=== PATIENT | male | born 1960 | race Caucasian/White ===

== ENCOUNTER 2016-09-29 14:11 | Emergency (ER) | payer OTHER ==
[~2016-09-29] VITALS: Ht 175.3 cm; Wt 75.0 kg
[~2016-09-29 14:11] MED LIST: DEPA500T3; DILA100C; IBUP600T26 PO; LORTA5 PO
[2016-09-29 14:31] VITALS: BP 146/79; PULSE 102; RESP 20; TEMP 99.3; O2SAT 94
[2016-09-29 14:35] LABS: MEAN CORPUSCULAR HGB CONC 36.7 % (32.0-36.0)
[2016-09-29 14:36] VITALS: BP 146/79; PULSE 98; RESP 18; TEMP 99.4; O2SAT 94; O2SAT 95
--- NOTE | 2016-09-29 14:39 | PD ---
HPI Chief Complaint: Seizure Time Seen by Provider: 14:27 Travel History International Travel<30 days: No Contact w/Intl Traveler<30days: No Traveled to known affect area: No History of Present Illness HPI This is a 56-year-old male with history of seizure disorder, neurologist is Dr. Holguin, presents via EMS for evaluation of seizure. Reportedly the patient was in the library when he had a generalized tonic-clonic seizure which was witnessed. He was postictal when paramedics initially arrived. The patient is currently complaining of lower back pain. He believes that he injured his back during the seizure. There is no reported incontinence or tongue biting. He reports that he is currently prescribed Depakote and Dilantin which he has been using as prescribed. He denies any drug or alcohol use. He has no other complaints at this time. [facility] Past Medical History Blood Disorders: No Cardiovascular Problems: No Endocrine: No Genitourinary: No Immune Disorder: No Musculoskeletal: No Neurologic: Yes Psychiatric: No Reproductive: No Respiratory: No Seizures: Yes ?: Not Past Surgical History Abdominal Surgery: No AICD: No Cardiac Surgery: No Ear Surgery: No Endocrine Surgery: No Eye Surgery: No Genitourinary Surgery: No Gynecologic Surgery: No Oral Surgery: Yes (PERMANENT WIRES IN JAW) Pacemaker: No Thoracic Surgery: No Social History Alcohol Use: No Tobacco Use: No Substance Use: No Allergies-Medications (Allergen,Severity, Reaction): Coded Allergies: No Known Allergies (Verified Allergy, Unknown, 04/28/05) Reported Meds & Prescriptions Reported Meds & Active Scripts Active Dilantin (Phenytoin Extended) 100 Mg Cap 100 Mg PO TID 30 Days Review of Systems Except as stated in HPI: all other systems reviewed are Neg Physical Exam Narrative GENERAL: Well-developed well-nourished male in no acute distress. SKIN: Warm and dry. HEAD: Atraumatic. Normocephalic. EYES: Pupils equal and round. No scleral icterus. No injection or drainage. ENT: No nasal bleeding or discharge. Mucous membranes pink and moist. NECK: Trachea midline. No JVD. CARDIOVASCULAR: Regular rate and rhythm. No murmur appreciated. RESPIRATORY: No accessory muscle use. Clear to auscultation. Breath sounds equal bilaterally. GASTROINTESTINAL: Abdomen soft, non-tender, nondistended. Hepatic and splenic margins not palpable. MUSCULOSKELETAL: No obvious deformities. Some slight tenderness to palpation to the lower lumbar spine. No obvious bruising or soft tissue swelling. NEUROLOGICAL: Awake and alert. No obvious cranial nerve deficits. Motor grossly within normal limits. Normal speech. PSYCHIATRIC: Appropriate mood and affect; insight and judgment normal. Data Data Last Documented VS Vital Signs Date Time Temp Pulse Resp B/P Pulse Ox O2 Delivery O2 Flow Rate FiO2 09/29/16 15:49 16 09/29/16 14:36 99.4 98 146/79 94 Room Air Orders Complete Blood Count With Diff (09/29/16 14:34) Basic Metabolic Panel (Bmp) (09/29/16 14:34) Phenytoin (Dilantin) (09/29/16 14:34) Valproic Acid (Depakene) (09/29/16 14:34) Drug Screen, Random Urine (09/29/16 14:34) Electrocardiogram (09/29/16 ) Ct Brain W/O Iv Contrast(Rout) (09/29/16 ) Blood Glucose (09/29/16 14:34) Ecg Monitoring (09/29/16 14:34) Iv Access Insert/Monitor (09/29/16 14:34) Oximetry (09/29/16 14:34) Sodium Chloride 0.9% Flush (Ns Flush) (09/29/16 14:45) Lorazepam Inj (Ativan Inj) (09/29/16 14:45) Spine, Lumbar - Ltd (Ap & Lat) (09/29/16 ) Morphine Inj (Morphine Inj) (09/29/16 14:45) Ct Lumb Spine W/O Contrast (09/29/16 ) Ct Thor Spine W/O Contrast (09/29/16 ) Phenytoin Inj (Dilantin Inj) (09/29/16 16:30) Labs Laboratory Tests Test 09/29/16 14:45 White Blood Count 16.3 TH/MM3 Red Blood Count 4.80 MIL/MM3 Hemoglobin 15.9 GM/DL Hematocrit 43.4 % Mean Corpuscular Volume 90.4 FL Mean Corpuscular Hemoglobin 33.2 PG Mean Corpuscular Hemoglobin 36.7 % Concent Red Cell Distribution Width 13.2 % Platelet Count 291 TH/MM3 Mean Platelet Volume 9.0 FL Neutrophils (%) (Auto) 78.7 % Lymphocytes (%) (Auto) 14.2 % Monocytes (%) (Auto) 5.3 % Eosinophils (%) (Auto) 1.5 % Basophils (%) (Auto) 0.3 % Neutrophils # (Auto) 12.8 TH/MM3 Lymphocytes # (Auto) 2.3 TH/MM3 Monocytes # (Auto) 0.9 TH/MM3 Eosinophils # (Auto) 0.2 TH/MM3 Basophils # (Auto) 0.0 TH/MM3 CBC Comment AUTO DIFF Differential Comment AUTO DIFF CONFIRMED Platelet Estimate NORMAL Platelet Morphology Comment NORMAL Sodium Level 139 MEQ/L Potassium Level 3.7 MEQ/L Chloride Level 105 MEQ/L Carbon Dioxide Level 22.4 MEQ/L Anion Gap 12 MEQ/L Blood Urea Nitrogen 15 MG/DL Creatinine 0.96 MG/DL Estimat Glomerular Filtration 81 ML/MIN Rate Random Glucose 110 MG/DL Calcium Level 9.0 MG/DL Phenytoin (Dilantin) Level LESS THAN 0.4 MCG/ML Valproic Acid (Depakene) Level LESS THAN 3 MCG/ML MDM Medical Decision Making Medical Screen Exam Complete: Yes Emergency Medical Condition: Yes Medical Record Reviewed: Yes Interpretation(s) X-ray lumbar spine CONCLUSION: Moderate compression deformities involving T12 and L3 of indeterminate ages. Clinical correlation is recommended. CT thoracic spine CONCLUSION: 1. T5 and T12 compression deformities are felt to be chronic in nature. No acute compression fracture is seen. CT lumbar spine CONCLUSION: 1. Old compression deformity involving L3. No acute compression fracture. 2. Mild degenerative disc disease. CBC reveals WBC of 16.3 BMP unremarkable Differential Diagnosis Breakthrough seizure, subtherapeutic antiepileptic medication, intracranial mass , hypoglycemia, electrolyte imbalance Narrative Course 56-year-old male with history of seizure disorder, on Depakote and Dilantin, presents after having a seizure at the library today. He is complaining of lower back pain which started after the seizure. Plan is for basic lab work, EKG, ECG monitoring, CT brain, lumbar spine x-ray. He'll be given IV Ativan, as well as morphine for pain. X-ray imaging of the lumbar spine reveals moderate compression deformities of T12 and L3 of indeterminate age. The patient denies any history of compression fractures. CT imaging has been ordered to further assess. The patient's Dilantin levels and Depakote levels are subtherapeutic and when the patient was questioned about this he admits that he has not been on any seizure medication for over 2 years. Therefore a Dilantin loading dose is been ordered. CT imaging reveals old compression deformities with nothing acute. Plan will be to discharge the patient reinitiating a low-dose Dilantin. He is encouraged to follow-up with his neurologist for any titration of medication as required. Discussed with Dr. Garsia agrees with plan of care. Diagnosis Primary Impression: Seizure Additional Instructions: Use the medication as prescribed. Follow up closely with your neurologist sometime this week. No driving for 6 months. Return for any emergent medical conditions. Med/Other Pt SpecificInfo: Prescription(s) given Scripts Phenytoin Extended (Dilantin)100 Mg [id number] Mg PO TID 30 Days Ref 0 Prov:Jose Garsia MD 09/29/16 Disposition: 01 DISCHARGE HOME Condition: Stable Arden Mcbride Sep 29, 2016 14:39
[2016-09-29] MEDS ORDERED: SODIUM CHLORIDE 0.9% FLUSH 10 ML FLUSH IVF PRN (14:45)
[2016-09-29] MEDS ORDERED: MORPHINE SULFATE 4 MG/ML INJ IV PUSH ONE (14:45)
[2016-09-29] MEDS ORDERED: LORazepam 2 MG/ML VIAL IVS ONE (14:45)
[2016-09-29 15:16] LABS: AUTOMATED NEUTROPHIL # 12.8 TH/MM3 (1.8-7.7); BASOPHIL % 0.3 % (0.0-2.0); EOSINOPHIL # 0.2 TH/MM3 (0-0.4); EOSINOPHIL % 1.5 % (0.0-4.0); HEMATOCRIT 43.4 % (39.0-51.0); LYMPH % 14.2 % (9.0-44.0); LYMPHOCYTE # 2.3 TH/MM3 (1.0-4.8); MEAN CELL VOLUME 90.4 FL (80.0-100.0); MEAN CORPUSCULAR HEMOGLOBIN 33.2 PG (27.0-34.0); MONO % 5.3 % (0.0-8.0); NEUT % 78.7 % (16.0-70.0); PLATELET COUNT 291 TH/MM3 (150-450); RED CELL DISTRIBUTION WIDTH 13.2 % (11.6-17.2); WHITE BLOOD COUNT 16.3 TH/MM3 (4.0-11.0)
--- NOTE | 2016-09-29 15:36 | RADRPT ---
EXAM DATE/TIME: 09/29/2016 15:10 [facility] COMPARISON: No previous studies available for comparison. INDICATIONS : Seizure today RADIATION DOSE: 56.35 CTDIvol (mGy) MEDICAL HISTORY : Seizures. SURGICAL HISTORY : None. ENCOUNTER: Initial ACUITY: 1 day PAIN SCALE: 10/10 LOCATION: cranial TECHNIQUE: Multiple contiguous axial images were obtained of the head. Using automated exposure control and adj ustment of the mA and/or kV according to patient size, radiation dose was kept as low as reasonably a chievable to obtain optimal diagnostic quality images. DICOM format image data is available electro nically for review and comparison. FINDINGS: CEREBRUM: Atrophy more pronounced within the posterior cranial fossa. The ventricles are normal for age. No ev idence of midline shift, mass lesion, hemorrhage or acute infarction. No extra-axial fluid collectio ns are seen. POSTERIOR FOSSA: The cerebellum and brainstem are intact. The 4th ventricle is midline. The cerebellopontine angle i s unremarkable. EXTRACRANIAL: The visualized portion of the orbits is intact. SKULL: The calvaria is intact. No evidence of skull fracture. CONCLUSION: No acute disease. Rodríguez Whatley Jr., MD on September 29, 2016 at 15:32 Board Certified Radiologist. This report was verified electronically.
[2016-09-29 15:38] LABS: HEMO FLAGS AUTO DIFF
[2016-09-29 15:49] VITALS: RESP 16
[2016-09-29 15:59] LABS: ANION GAP 12 MEQ/L (5-15); BICARBONATE 22.4 MEQ/L (21.0-32.0); BLOOD UREA NITROGEN 15 MG/DL (7-18); CHLORIDE 105 MEQ/L (98-107); GLOMERULAR FILTRATION RATE 81 ML/MIN (>89); SODIUM (NA) 139 MEQ/L (136-145)
--- NOTE | 2016-09-29 16:14 | RADRPT ---
EXAM DATE/TIME: 09/29/2016 15:22 [facility] COMPARISON: No previous studies available for comparison. INDICATIONS : Fell, seizure. MEDICAL HISTORY : Seizures SURGICAL HISTORY : None. ENCOUNTER: Initial ACUITY: 1 day PAIN SCORE: 7/10 LOCATION: Bilateral lumbar spine FINDINGS: There are moderate compression deformities involving T12 and L3 of indeterminate ages. Clinical reji elation is recommended. No spondylolisthesis is noted. CONCLUSION: Moderate compression deformities involving T12 and L3 of indeterminate ages. Clinical correlation is recommended. Pk Oshea MD on September 29, 2016 at 16:00 Board Certified Radiologist. This report was verified electronically.
[2016-09-29 16:17] LABS: POTASSIUM 3.7 MEQ/L (3.5-5.1)
[2016-09-29 16:20] LABS: PLATELET ESTIMATE SMEAR NORMAL (NORMAL); PLATELET MORPHOLOGY NORMAL (NORMAL); SCAN/DIFF AUTO DIFF CONFIRMED
[2016-09-29] MEDS ORDERED: PHENYTOIN INJ 1,000 MG in SODIUM CHLORIDE 0.9% INJ 100 ML IV ONE (16:30)
--- NOTE | 2016-09-29 16:58 | EKG ---
Date Performed: 09/29/2016 Time Performed: 14:57:12 PTAGE: 56 years EKG: Sinus rhythm WITH SHORT ID INTERVAL BORDERLINE ECG NO PREVIOUS TRACING DOCTOR: Roman Nuñez Interpretating Date/Time 09/29/2016 16:56:35
--- NOTE | 2016-09-29 17:40 | RADRPT ---
EXAM DATE/TIME: 09/29/2016 16:39 [facility] COMPARISON: No previous studies available for comparison. INDICATIONS : Mid back pain from fall. RADIATION DOSE: 35.86 CTDIvol (mGy) ; Combined studies - Thoracic Spine/Lumbar Spine MEDICAL HISTORY : Seizures. SURGICAL HISTORY : Jaw sx. ENCOUNTER: Initial ACUITY: >1 yr PAIN SCALE: 9/10 LOCATION: Bilateral mid back pain. TECHNIQUE: Volumetric scanning of the thoracic spine was performed. Multiplanar reconstructions in the sagittal , coronal and oblique axial planes were performed. Using automated exposure control and adjustment o f the mA and/or kV according to patient size, radiation dose was kept as low as reasonably achievable to obtain optimal diagnostic quality images. DICOM format image data is available electronically f or review and comparison. FINDINGS: There are superior endplate compression deformities involving T5 and T12. At T5 the loss of height is less than 10%. At T12 the loss of height is 50%. No cortical or trabecular irregularity observed to suggest these are acute. A Schmorl's node is seen involving the superior endplate of T11. Schmorl's n ode is associated with the superior endplate of T5. T1-T2: Normal. T2-T3: The thecal sac has a normal diameter. No evidence of disc bulge or protrusion. T3-T4: The thecal sac has a normal diameter. No evidence of disc bulge or protrusion. T4-T5: The thecal sac has a normal diameter. No evidence of disc bulge or protrusion. T5-T6: The thecal sac has a normal diameter. No evidence of disc bulge or protrusion. T6-T7: The thecal sac has a normal diameter. No evidence of disc bulge or protrusion. T7-T8: The thecal sac has a normal diameter. No evidence of disc bulge or protrusion. T8-T9: The thecal sac has a normal diameter. No evidence of disc bulge or protrusion. T9-T10: The thecal sac has a normal diameter. No evidence of disc bulge or protrusion. T10-T11: The thecal sac has a normal diameter. No evidence of disc bulge or protrusion. T11-T12: The thecal sac has a normal diameter. No evidence of disc bulge or protrusion. T12-L1: The thecal sac has a normal diameter. No evidence of disc bulge or protrusion. CONCLUSION: 1. T5 and T12 compression deformities are felt to be chronic in nature. No acute compression fracture is seen. Rodríguez Whatley Jr., MD on September 29, 2016 at 17:32 Board Certified Radiologist. This report was verified electronically.
[2016-09-29] MEDS ORDERED: DILA100C PO (17:42)
--- NOTE | 2016-09-29 17:43 | RADRPT ---
EXAM DATE/TIME: 09/29/2016 16:39 [facility] COMPARISON: No previous studies available for comparison. INDICATIONS : Low back pain. RADIATION DOSE: 35.81 CTDIvol (mGy) ; Combined studies - Thoracic Spine/Lumbar Spine MEDICAL HISTORY : Seizures. SURGICAL HISTORY : Jaw sx. ENCOUNTER: Initial ACUITY: >1 yr PAIN SCALE: 8/10 LOCATION: Bilateral low back pain. TECHNIQUE: Volumetric scanning of the lumbar spine was performed. Multiplanar reconstructions in the sagittal, coronal and oblique axial planes were performed. Using automated exposure control and adjustment of the mA and/or kV according to patient size, radiation dose was kept as low as reasonably achievable t o obtain optimal diagnostic quality images. DICOM format image data is available electronically for review and comparison. FINDINGS: Please see the thoracic spine CT scan report septally. VERTEBRAE: There is a loss of height of the superior endplate of L3 with an associated Schmorl's node. Loss of h eight is 30%. Remaining vertebral body heights are preserved within the lumbar spine. A Schmorl's nod e is seen involving the inferior endplate of L4. ALIGNMENT: No evidence of subluxation. T12-L1: The thecal sac has a normal diameter. No evidence of disc bulge or protrusion. The neural foramina are patent bilaterally. L1-L2: The thecal sac has a normal diameter. No evidence of disc bulge or protrusion. The neural foramina are patent bilaterally. L2-L3: The thecal sac has a normal diameter. No evidence of disc bulge or protrusion. The neural foramina are patent bilaterally. L3-L4: There is a minimal broad-based disc bulge. Central canal and lateral recesses are patent. Neural fora cl are patent. Facet joints are unremarkable. L4-L5: There is a minimal broad-based disc bulge. Central canal and lateral recesses are patent. Neural fora cl are patent. Facet joints are unremarkable. L5-S1: There is a minimal broad-based disc bulge. Central canal and lateral recesses are patent. Neural fora cl are patent. Facet joints are unremarkable. CONCLUSION: 1. Old compression deformity involving L3. No acute compression fracture. 2. Mild degenerative disc disease. Rodríguez Whatley Jr., MD on September 29, 2016 at 17:38 Board Certified Radiologist. This report was verified electronically.
== END 2016-09-29 19:26 | disposition home or self-care (01) ==
LOC: MERGE 14:11 → NEPE 14:11
DX: G40.401 Other generalized epilepsy and epileptic syndromes, not intractable, with status epilepticus (principal); M48.54XA Collapsed vertebra, not elsewhere classified, thoracic region, initial encounter for fracture; M48.56XA Collapsed vertebra, not elsewhere classified, lumbar region, initial encounter for fracture
CPT/HCPCS: 70450; 72100; 72128; 72131; 80048; 80164; 80185; 85025; 93005; 96374; 96375; 99285; J1165; J2060; J2270

== ENCOUNTER 2017-03-07 12:26 | Emergency (ER) | payer OTHER ==
[~2017-03-07] VITALS: Ht 175.3 cm; Wt 74.0 kg
[~2017-03-07 12:26] MED LIST changes: +DILA100C PO
[2017-03-07 12:32] VITALS: BP 126/81; PULSE 100; RESP 16; TEMP 98.2; O2SAT 98
[2017-03-07] MEDS ORDERED: SODIUM CHLOR 0.9% 1000 ML INJ 1,000 ML IV ONE (12:34)
[2017-03-07 12:38] VITALS: PULSE 97; RESP 20; O2SAT 96
[2017-03-07] MEDS ORDERED: LORazepam 1 MG TAB PO ONE (13:00)
[2017-03-07 13:07] LABS: AUTOMATED NEUTROPHIL # 8.4 TH/MM3 (1.8-7.7); BASOPHIL # 0.1 TH/MM3 (0-0.2); BASOPHIL % 0.5 % (0.0-2.0); EOSINOPHIL # 0.5 TH/MM3 (0-0.4); EOSINOPHIL % 4.4 % (0.0-4.0); HEMATOCRIT 49.3 % (39.0-51.0); HEMOGLOBIN 16.8 GM/DL (13.0-17.0); LYMPH % 21.3 % (9.0-44.0); LYMPHOCYTE # 2.6 TH/MM3 (1.0-4.8); MEAN CORPUSCULAR HGB CONC 34.1 % (32.0-36.0); MEAN PLATELET VOLUME 9.2 FL (7.0-11.0); MONO % 5.2 % (0.0-8.0); MONOCYTE # 0.6 TH/MM3 (0-0.9); NEUT % 68.6 % (16.0-70.0); PLATELET COUNT 194 TH/MM3 (150-450); RED BLOOD COUNT 5.24 MIL/MM3 (4.50-5.90); RED CELL DISTRIBUTION WIDTH 12.7 % (11.6-17.2); WHITE BLOOD COUNT 12.2 TH/MM3 (4.0-11.0)
[2017-03-07 13:10] VITALS: PULSE 88; RESP 16; O2SAT 98
--- NOTE | 2017-03-07 13:11 | PD ---
HPI Chief Complaint: Seizure Time Seen by Provider: 12:36 Travel History International Travel<30 days: No Contact w/Intl Traveler<30days: No Traveled to known affect area: No History of Present Illness HPI 56-year-old male that presents to the ED for evaluation of seizure. Per patient he has a chronic history of tonic-clonic seizures. He has been here before for similar. He reports that he does not drive. Per patient and and was reported he was at a client's home when he had the reported seizure. Seizure was witnessed by client. He has been postictal since. He somewhat back to normal. He does tell me that he takes Dilantin but he did not take his meds today. She denies any drug abuse or alcohol abuse. Unclear if patient actually takes his medications. I did review the patient's medical record and his last visit this summer he had admitted to the physician at the time that he was not taking any of his antiseizure medications for quite some time. He cannot really tell me he hit his head or not but denies any pain. He does have an abrasion to his head. Ambulance report cannot really tell me if he had a fall or not but it appears that he might have done so. He denies any pain to his arms or legs. No neck pain or back pain. He has no allergies to medication. He denies any allergies. Apparently seizure lasted a couple minutes and when awakened on his own. No medications have been given to him by ambulance. PFSH Past Medical History Blood Disorders: No Cardiovascular Problems: No Diminished Hearing: No Endocrine: No Gastrointestinal Disorders: No Genitourinary: No Immune Disorder: No Musculoskeletal: Yes (fracture right fracture) Neurologic: Yes Psychiatric: No Reproductive: No Respiratory: No Seizures: Yes Past Surgical History Abdominal Surgery: No AICD: No Cardiac Surgery: No Ear Surgery: No Endocrine Surgery: No Eye Surgery: No Genitourinary Surgery: No Gynecologic Surgery: No Neurologic Surgery: No Oral Surgery: Yes (PERMANENT WIRES IN JAW) Pacemaker: No Thoracic Surgery: No Other Surgery: Yes Social History Alcohol Use: No Tobacco Use: No (2 PACK YEARS) Substance Use: No Allergies-Medications (Allergen,Severity, Reaction): Coded Allergies: No Known Allergies (Verified Allergy, Unknown, 03/07/17) Reported Meds & Prescriptions Reported Meds & Active Scripts Active Dilantin (Phenytoin Extended) 100 Mg Cap 100 Mg PO TID 30 Days [place] 5-325 mg (Hydrocodone-Acetaminophen 5-325 mg) 5 mg/325 mg Tab 1 Tab PO Q6H PRN Ibuprofen 600 Mg Tab 600 Mg PO Q8H PRN Reported Dilantin [place] (Phenytoin Sodium) 100 Mg Cap Depakote ER 500 mg (Divalproex Sodium) 500 Mg Cherise Review of Systems Except as stated in HPI: all other systems reviewed are Neg Physical Exam Narrative GENERAL: SKIN: Warm and dry. HEAD: Atraumatic. Normocephalic. EYES: Pupils equal and round 4 mm reactive to light and accommodation. No scleral icterus. No injection or drainage. ENT: No nasal bleeding or discharge. Mucous membranes pink and moist. Tongue is midline. No uvula deviation. NECK: Trachea midline. No JVD. CARDIOVASCULAR: Regular rate and rhythm. No murmurs, S3, S4. RESPIRATORY: No accessory muscle use. Clear to auscultation. Breath sounds equal bilaterally. GASTROINTESTINAL: Abdomen soft, non-tender, nondistended. Hepatic and splenic margins not palpable. MUSCULOSKELETAL: Extremities without clubbing, cyanosis, or edema. No obvious deformities. Full range of motion of the upper and lower extremities bilaterally. 2+ pulses bilaterally. NEUROLOGICAL: Awake and alert. No obvious cranial nerve deficits. Motor grossly within normal limits. Five out of 5 muscle strength in the arms and legs. Normal speech. PSYCHIATRIC: Appropriate mood and affect; insight and judgment normal. Data Data Last Documented VS Vital Signs Date Time Temp Pulse Resp B/P (MAP) Pulse Ox O2 Delivery O2 Flow Rate FiO2 03/07/17 13:10 88 16 98 Room Air 03/07/17 12:32 98.2 126/81 (96) Orders Orders Complete Blood Count With Diff (03/07/17 12:34) Basic Metabolic Panel (Bmp) (03/07/17 12:34) Alcohol (Ethanol) (03/07/17 12:34) Phenytoin (Dilantin) (03/07/17 12:34) Drug Screen, Random Urine (03/07/17 12:34) Ecg Monitoring (03/07/17 12:34) Iv Access Insert/Monitor (03/07/17 12:34) Oximetry (03/07/17 12:34) Sodium Chlor 0.9% 1000 Ml Inj (Ns 1000 M (03/07/17 12:34) Ct Brain W/O Iv Contrast(Rout) (03/07/17 ) Lorazepam (Ativan) (03/07/17 13:00) Fosphenytoin Inj (Cerebyx Inj) (03/07/17 14:00) Ed Discharge Order (03/07/17 14:38) Labs Laboratory Tests Test 03/07/17 12:50 White Blood Count 12.2 TH/MM3 Red Blood Count 5.24 MIL/MM3 Hemoglobin 16.8 GM/DL Hematocrit 49.3 % Mean Corpuscular Volume 94.0 FL Mean Corpuscular Hemoglobin 32.0 PG Mean Corpuscular Hemoglobin Concent 34.1 % Red Cell Distribution Width 12.7 % Platelet Count 194 TH/MM3 Mean Platelet Volume 9.2 FL Neutrophils (%) (Auto) 68.6 % Lymphocytes (%) (Auto) 21.3 % Monocytes (%) (Auto) 5.2 % Eosinophils (%) (Auto) 4.4 % Basophils (%) (Auto) 0.5 % Neutrophils # (Auto) 8.4 TH/MM3 Lymphocytes # (Auto) 2.6 TH/MM3 Monocytes # (Auto) 0.6 TH/MM3 Eosinophils # (Auto) 0.5 TH/MM3 Basophils # (Auto) 0.1 TH/MM3 CBC Comment DIFF FINAL Differential Comment Blood Urea Nitrogen 17 MG/DL Creatinine 0.94 MG/DL Random Glucose 129 MG/DL Calcium Level 9.3 MG/DL Sodium Level 138 MEQ/L Potassium Level 4.5 MEQ/L Chloride Level 105 MEQ/L Carbon Dioxide Level 21.7 MEQ/L Anion Gap 11 MEQ/L Estimat Glomerular Filtration Rate 83 ML/MIN Phenytoin (Dilantin) Level 0.6 MCG/ML Ethyl Alcohol Level LESS THAN 3 MG/DL [facility] Medical Decision Making Medical Screen Exam Complete: Yes Emergency Medical Condition: Yes Medical Record Reviewed: Yes Interpretation(s) CBC & BMP Diagram 03/07/17 12:50 Calcium Level 9.[address] 03/07/17 0000 Signed Impressions: Service Date/Time: Tuesday, March 07, 2017 12:53 - CONCLUSION: No acute intracranial abnormality seen. There is possible cerebellar atrophy. Loy Arriola MD tox screen WNL, dilantin level low Differential Diagnosis Seizure versus epilepsy versus noncompliance versus head injury Narrative Course 56-year-old male that presents to the ED for evaluation of possible seizure. Patient was properly examined and was found to have signs and symptoms consistent with seizure. History of seizures in the past per old records. History of noncompliance as well. At this time patient is somewhat postictal history is a little bit limited that he does appear to answer questions very appropriately. Labs and imaging were ordered. Patient was given Ativan by mouth per my attendings recommendations. Labs and imaging showed no sign of acute disease other than low Dilantin. Suspect the patient is noncompliant likely the cause of the seizure. Patient was reassured. Patient somewhat back to baseline. Feels better and wants to go home. My attending was made aware of findings and patient was given IV loading dose of seizure medication. Patient was given prescription for Dilantin. Told to follow closely with PCP and neurologist. No driving for 6 months. See ED worsening symptoms. Seizure precautions given. Diagnosis Primary Impression: Seizure Patient Instructions: General Instructions, Narcotic given in the ED Additional Instructions: Take your medication as prescribed. Follow with PCP. See ED worsening symptoms. Follow with neurologist. No driving for 6 months or better. Med/Other Pt SpecificInfo: Prescription(s) given Scripts Phenytoin Extended (Dilantin) 100 Mg Cap 100 MG PO TID for Control Seizures for 30 Days, CAP 0 Refills Prov: Aileen Jj MD 03/07/17 Disposition: 01 DISCHARGE HOME Condition: Stable Freddy Avendano Mar 07, 2017 13:11
--- NOTE | 2017-03-07 13:21 | RADRPT ---
EXAM DATE/TIME: 03/07/2017 12:53 [facility] COMPARISON: CT BRAIN W/O CONTRAST, September 29, 2016, 15:10. INDICATIONS : Possible seizure today. RADIATION DOSE: 39.71 CTDIvol (mGy) MEDICAL HISTORY : Seizures. SURGICAL HISTORY : jaw surgery ENCOUNTER: Initial ACUITY: 1 day PAIN SCALE: 0/10 LOCATION: Bilateral head TECHNIQUE: Multiple contiguous axial images were obtained of the head. Using automated exposure control and adj ustment of the mA and/or kV according to patient size, radiation dose was kept as low as reasonably a chievable to obtain optimal diagnostic quality images. DICOM format image data is available electro nically for review and comparison. FINDINGS: CEREBRUM: The ventricles are normal for age. No evidence of midline shift, mass lesion, hemorrhage or acute in farction. No extra-axial fluid collections are seen. POSTERIOR FOSSA: The cerebellum and brainstem are intact. There does appear to be some atrophy of the cerebellum. The 4th ventricle is midline. The cerebellopontine angle is unremarkable. EXTRACRANIAL: The visualized portion of the orbits is intact. There is mild focal mucosal disease of the right maxi llary sinus. SKULL: The calvaria is intact. No evidence of skull fracture. CONCLUSION: No acute intracranial abnormality seen. There is possible cerebellar atrophy. Loy Arriola MD on March 07, 2017 at 13:17 Board Certified Radiologist. This report was verified electronically.
[2017-03-07 13:34] LABS: PHENYTOIN (DILANTIN) 0.6 MCG/ML (10.0-20.0)
[2017-03-07 13:38] LABS: BICARBONATE 21.7 MEQ/L (21.0-32.0); BLOOD UREA NITROGEN 17 MG/DL (7-18); CALCIUM 9.3 MG/DL (8.5-10.1); CHLORIDE 105 MEQ/L (98-107); CREATININE 0.94 MG/DL (0.60-1.30); GLOMERULAR FILTRATION RATE 83 ML/MIN (>89); GLUCOSE,RANDOM 129 MG/DL (74-106); SODIUM (NA) 138 MEQ/L (136-145)
[2017-03-07] MEDS ORDERED: FOSPHENYTOIN INJ 1,000 MGPE in SODIUM CHLORIDE 0.9% INJ 50 ML IV ONE (14:00)
[2017-03-07] MEDS ORDERED: DILA100C PO (14:28)
--- NOTE | 2017-03-07 15:41 | PD ---
Physical Exam Narrative GENERAL: Well-nourished, well-developed patient. SKIN: Warm and dry. HEAD: Normocephalic EYES: No injection or drainage. ENT: No nasal drainage noted. NECK: Supple, trachea midline. CARDIOVASCULAR: Regular rate and rhythm RESPIRATORY: no increased effort. No accessory muscle use NEUROLOGICAL: Awake and alert. Motor and sensory grossly within normal limits. Normal speech. Data Data Last Documented VS Vital Signs Date Time Temp Pulse Resp B/P (MAP) Pulse Ox O2 Delivery O2 Flow Rate FiO2 03/07/17 13:10 88 16 98 Room Air 03/07/17 12:32 98.2 126/81 (96) Orders Orders Complete Blood Count With Diff (03/07/17 12:34) Basic Metabolic Panel (Bmp) (03/07/17 12:34) Alcohol (Ethanol) (03/07/17 12:34) Phenytoin (Dilantin) (03/07/17 12:34) Drug Screen, Random Urine (03/07/17 12:34) Ecg Monitoring (03/07/17 12:34) Iv Access Insert/Monitor (03/07/17 12:34) Oximetry (03/07/17 12:34) Sodium Chlor 0.9% 1000 Ml Inj (Ns 1000 M (03/07/17 12:34) Ct Brain W/O Iv Contrast(Rout) (03/07/17 ) Lorazepam (Ativan) (03/07/17 13:00) Fosphenytoin Inj (Cerebyx Inj) (03/07/17 14:00) Ed Discharge Order (03/07/17 14:38) Labs Laboratory Tests Test 03/07/17 12:50 White Blood Count 12.2 TH/MM3 Red Blood Count 5.24 MIL/MM3 Hemoglobin 16.8 GM/DL Hematocrit 49.3 % Mean Corpuscular Volume 94.0 FL Mean Corpuscular Hemoglobin 32.0 PG Mean Corpuscular Hemoglobin Concent 34.1 % Red Cell Distribution Width 12.7 % Platelet Count 194 TH/MM3 Mean Platelet Volume 9.2 FL Neutrophils (%) (Auto) 68.6 % Lymphocytes (%) (Auto) 21.3 % Monocytes (%) (Auto) 5.2 % Eosinophils (%) (Auto) 4.4 % Basophils (%) (Auto) 0.5 % Neutrophils # (Auto) 8.4 TH/MM3 Lymphocytes # (Auto) 2.6 TH/MM3 Monocytes # (Auto) 0.6 TH/MM3 Eosinophils # (Auto) 0.5 TH/MM3 Basophils # (Auto) 0.1 TH/MM3 CBC Comment DIFF FINAL Differential Comment Blood Urea Nitrogen 17 MG/DL Creatinine 0.94 MG/DL Random Glucose 129 MG/DL Calcium Level 9.3 MG/DL Sodium Level 138 MEQ/L Potassium Level 4.5 MEQ/L Chloride Level 105 MEQ/L Carbon Dioxide Level 21.7 MEQ/L Anion Gap 11 MEQ/L Estimat Glomerular Filtration Rate 83 ML/MIN Phenytoin (Dilantin) Level 0.6 MCG/ML Ethyl Alcohol Level LESS THAN 3 MG/DL MDM Supervised Visit with HEIDY: Yes Narrative Course I, Dr. noel, have reviewed the advance practice practitioner's documentation and am in agreement, met with the patient face to face, made the diagnosis, and the medical decision making was done by me. *My assessment and Findings: 56-year-old male with subtherapeutic Dilantin level the presents with seizure. He was given Cerebyx and will need to follow with his neurologist Diagnosis Primary Impression: Seizure Patient Instructions: General Instructions, Narcotic given in the ED Additional Instruction: Take your medication as prescribed. Follow with PCP. See ED worsening symptoms. Follow with neurologist. No driving until cleared with neurology Med/Other Pt SpecificInfo: Prescription(s) given Scripts Phenytoin Extended (Dilantin) 100 Mg Cap 100 MG PO TID for Control Seizures for 30 Days, CAP 0 Refills Prov: Aileen Noel MD 03/07/17 Disposition: 01 DISCHARGE HOME Condition: Stable Aileen Noel MD Mar 07, 2017 15:40
[2017-03-07 16:11] VITALS: BP 125/68
== END 2017-03-07 16:26 | disposition home or self-care (01) ==
LOC: NEPC 12:26
DX: R56.9 Unspecified convulsions (principal)
CPT/HCPCS: 70450; 80048; 80185; 80307; 85025; 96361; 96365; 99285; J7030; Q2009